=== PATIENT | female | born 1995 | race Caucasian/White ===

== ENCOUNTER 2018-01-01 17:52 | Emergency (ER) | payer OTHER ==
[~2018-01-01] VITALS: Ht 165.1 cm; Wt 79.0 kg
--- NOTE | 2018-01-01 17:57 | EMERGENCY ROOM VISIT NOTE ---
History Report prepared by Maryam: Maynor Sevilla Under the Supervision of: Dr. Jarrell Cabrera D.O. First contact with patient: 17:53 Stated Complaint: ALCOHOL OVERDOSE History of Present Illness The patient is a 22 year old female who presents to the Emergency Room with complaints of constant altered mental status beginning 5 hours ago. Nursing staff states the patient was found slumped over in a chair with her friends. They report the patient was confused and started to answer questions when asked. The patient notes she was at work until 1230 and then started drinking alcohol afterwards. She states she has a history of hyperthyroidism. The patient denies smoking, drug use, hitting her head, falling, previous surgeries , nausea, and vomiting. HPI limited secondary to the patient's altered mental status. Source of History: patient, nursing staff History Limited By: AMS Onset: 5 hours ago Quality: other (AMS) Timing: constant Note: Denies: falling, hitting her head Review of Systems ROS limited secondary to the patient's altered mental status. Past Medical & Surgical Medical Problems: (1) Hyperthyroidism Family History Unobtainable secondary to the patient's altered mental status. Social History Alcohol Use: heavy Occupation Status: student Current/Historical Medications Scheduled Control Pills ( Control Pills), 1 TAB PO DAILY Allergies Coded Allergies: No Known Allergies (Unverified , 01/01/18) Physical Exam Vital Signs Date Time Temp Pulse Resp B/P (MAP) Pulse Ox O2 Delivery O2 Flow Rate FiO2 01/01/18 22:46 79 16 123/71 98 01/01/18 22:07 109 01/01/18 21:30 109 20 124/87 99 Room Air 01/01/18 20:00 177 130/100 96 Room Air 01/01/18 19:49 120 20 121/71 98 Room Air 01/01/18 19:00 110 17 133/75 96 Room Air 01/01/18 18:32 92 18 112/80 95 Room Air 01/01/18 18:14 95 21 127/84 94 Room Air 01/01/18 18:08 106 01/01/18 18:02 36.4 93 18 127/84 97 Room Air 01/01/18 18:02 94 Room Air Physical Exam GENERAL: Patient is tearful but awake, alert, and does not appear to be uncomfortable or in any pain. EYES: The conjunctivae are injected bilaterally. The pupils are dilated but round and reactive to light bilaterally. EARS, NOSE, MOUTH AND THROAT: The nose is without any evidence of any deformity. Mucous membranes are moist tongue is midline NECK: The neck is nontender and supple. RESPIRATORY: Normal respiratory effort is noted there is no evidence of wheezing rhonchi or rales CARDIOVASCULAR: Regular rate and rhythm noted there no murmurs rubs or gallops normal S1 normal S2 GASTROINTESTINAL: The abdomen is soft. Bowel sounds are present in all quadrants. Abdomen is nontender MUSCULOSKELETAL/EXTREMITIES: There is no evidence of gross deformity full range of motion is noted in the hips and shoulders SKIN: There is no obvious evidence of any rash. There are no petechiae, pallor or cyanosis noted. NEUROLOGIC: Patient is awake alert and oriented x3 strength is symmetric patellar reflexes are 2+ bilaterally Medical Decision & Procedures Laboratory Results 01/01/18 18:58 Test 01/01/18 18:53 01/01/18 18:58 Human Chorionic Gonadotropin, Qual NEG (NEG) Anion Gap 9.0 mmol/L (3-11) Est Creatinine Clear Calc Drug Dose 142.2 ml/min Estimated GFR () 147.1 Estimated GFR (Non- 126.9 BUN/Creatinine Ratio 13.7 (10-20) Calcium Level 8.4 mg/dl (8.5-10.1) Ethyl Alcohol mg/dL 360.2 mg/dl (0-3) Laboratory results per my review. ED Course 1753: The patient was evaluated in room B03B. A complete history and physical examination were performed. 2100: I reevaluated the patient. Her parent's were in the room. I updated the parents of the patient's visit. 2131: Upon reevaluation, the patient is resting comfortably. I discussed the results and treatment plan with her and her parents. They verbalized agreement of the treatment plan. The patient will be ready for discharge in an hour. Medical Decision Differential diagnosis: Etiologies such as alcohol intoxication, toxicologic, infection, hypoglycemia, electrolyte abnormalities, cardiac sources, intracerebral event, neurologic, as well as others were entertained. Nursing notes reviewed. The patient is a 22-year-old female who presented to the emergency department for alcohol intoxication. The patient was awake and alert but clinically intoxicated. Her alcohol level was elevated. I discussed patient's laboratory results with her. She was reevaluated multiple times. Her parents presented to the emergency department to be with her. She was able to be discharged with her parents. The patient was encouraged to avoid any further alcoholic beverages. She was also encouraged to not operate any heavy machinery including driving a vehicle for the next 24 hours. Otherwise she was encouraged to return the emergency department immediately if symptoms change worsen or the need arises. Medication Reconcilliation Current Medication List: was personally reviewed by me Blood Pressure Screening Patient's blood pressure: Normal blood pressure Blood pressure disposition: Did not require urgent referral Impression Primary Impression: Alcoholic intoxication Scribe Attestation The scribe's documentation has been prepared under my direction and personally reviewed by me in its entirety. I confirm that the note above accurately reflects all work, treatment, procedures, and medical decision making performed by me. Departure Information Dispostion Home / Self-Care Referrals [facility] Forms HOME CARE DOCUMENTATION FORM, IMPORTANT VISIT INFORMATION Patient Instructions [facility] [employer] Students and Alcohol Related Visits, My [facility] Additional Instructions Drink plenty of clear liquids. Avoid any further alcoholic beverages for the next 24 hours. Do not operate any heavy machinery including driving a vehicle for the next 24 hours. Return to the emergency department immediately if symptoms change worsen or the need arises. Problem Qualifiers Primary Impression: Alcoholic intoxication Complication of substance-induced condition: with unspecified complication Qualified Codes: F10.929 - Alcohol use, unspecified with intoxication, unspecified
[2018-01-01 18:02] VITALS: TEMP 36.4; O2SAT 94; Ht 165.1 cm; Wt 79.0 kg
[2018-01-01] MEDS ORDERED: BCPILLS PO (19:12)
[2018-01-01 19:32] LABS: CALCIUM 8.4 mg/dl (8.5-10.1); CREATININE 0.65 mg/dl (0.60-1.20); POTASSIUM 3.3 mmol/L (3.5-5.1)
[2018-01-01 22:46] VITALS: BP 123/71; PULSE 79; O2SAT 98
== END 2018-01-01 22:47 | disposition home or self-care (01) ==
LOC: C.EDB 17:52
DX: F10.929 Alcohol use, unspecified with intoxication, unspecified (principal); Y90.8 Blood alcohol level of 240 mg/100 ml or more; E05.90 Thyrotoxicosis, unspecified without thyrotoxic crisis or storm; Z79.3 Long term (current) use of hormonal contraceptives